=== PATIENT | male | born 1990 | race Caucasian/White ===

== ENCOUNTER 2017-07-29 01:58 | Emergency (ER) | payer OTHER ==
[2017-07-29] MEDS ORDERED: Ketorolac INJ* 60 MG/2 ML VIAL IM ONE (02:52)
[2017-07-29] MEDS ORDERED: Ketorolac INJ* 60 MG/2 ML VIAL ONE (02:55)
--- NOTE | 2017-07-29 06:39 | ED ---
Tej Waller Rebecca, scribed for Gonzalez De La Torre MD on 07/29/17 at 0212 . Lower Extremity - HPI Summary HPI Summary: Pt is a 27 y/o M BIBA who presents to ED c/o R ankle pain with EtOH involvement. When asked what happened, the pt shakes his head and states he was trying to go home and go to sleep. When asked how much he had to drink tonight he reported enough. EMS report that he did not remember the incident but that he was found in an area where it looked like he had fallen down a ledge. Associated pain is currently moderate, ranked 6/10. - History of Current Complaint Chief Complaint: EDExtremityLower Stated Complaint: RT LEG INJURY Hx Obtained From: Patient, EMS Onset of Pain: Prior to Arrival Onset/Duration: Still Present Severity Currently: Moderate - 6/10 Pain Intensity: 6 Pain Scale Used: 0-10 Numeric Location: Is Discrete @ - R ankle - Allergies/Home Medications Allergies/Adverse Reactions: Allergies Allergy/AdvReac Type Severity Reaction Status Date / Time Amoxicillin Allergy Hives Verified 07/29/17 09:00 amoxicillin Allergy Hives Uncoded 07/29/17 09:00 PMH/Surg Hx/FS Hx/Imm Hx Cardiovascular History: Denies: Hx Coronary Artery Disease Respiratory History: Reports: Hx Asthma Infectious Disease History: No Infectious Disease History: Denies: Traveled Outside the [place] in Last 30 Days - Family History Known Family History: Negative: Hypertension - Social History Substance Use Type: Reports: None Smoking Status (MU): Never Smoked Tobacco Review of Systems Positive: Arthralgia - R ankle pain s/p fall Positive: Other - EtOH All Other Systems Reviewed And Are Negative: Yes Physical Exam Triage Information Reviewed: Yes Vital Signs On Initial Exam: Initial Vitals Temp Pulse Resp BP Pulse Ox 98.8 F 135 14 141/90 98 07/29/17 02:05 07/29/17 02:05 07/29/17 02:05 07/29/17 02:05 07/29/17 02:05 Vital Signs Reviewed: Yes Appearance: Positive: Well-Appearing, Pain Distress - mild pain Skin: Positive: Warm Head/Face: Positive: Normal Head/Face Inspection Eyes: Positive: BELL ENT: Positive: Hearing grossly normal Respiratory/Lung Sounds: Positive: Breath Sounds Present Cardiovascular: Positive: RRR Abdomen Description: Positive: Nontender, Soft Musculoskeletal: Positive: Other - rt ankle swollen, obvious deformity, pain to palpation, pulses 2+ distally Procedures - Splinting Hand-Made Type: orthoglass Splint: sugar-tong Pre-Proc Neuro Vasc Exam: normal Post-Proc Neuro Vasc Exam: normal - Joint Reduction Joint Reduction Site: ankle (R) Conscious Sedation: No Reduction Attempts: 1 Pre-Procedure NV Exam: Yes Post Joint Reduction Film: joint reduced Diagnostics - Vital Signs Vital Signs Temp Pulse Resp BP Pulse Ox 07/29/17 02:05 98.8 F 135 14 141/90 98 - Laboratory Result Diagrams: 07/29/17 07:30 07/29/17 07:30 Lab Statement: Any lab studies that have been ordered have been reviewed, and results considered in the medical decision making process. - Radiology Ankle XR Xray Interpretation: Positive (See Comments) - Bimalleaolar ankle fracture with dislocation Radiology Interpretation Completed By: ED Physician Re-Evaluation - Re-Evaluation First Eval Re-Evaluation Time: 02:37 Change: Improved Comment: Discussed XR results with the pt. Lower Extremity Course/Dx - Course Assessment/Plan: Pt is a 27 y/o M BIBA who presents to ED c/o R ankle pain with EtOH involvement. When asked what happened, the pt shakes his head and states he was trying to go home and go to sleep. When asked how much he had to drink tonight he reported enough. EMS report that he did not remember the incident but that he was found in an area where it looked like he had fallen down a ledge. Associated pain is currently moderate, ranked 6/10. Ankle XR as read by ED physician reveals bimalleaolar ankle fracture with widened borders. In the ED course, pt was administered Toradol. Discussed care of pt with Dr. Koffi Mcfarlane who discussed the patient and he advised that the pt is splinted and follows up in the office as an outpatient. Pt will be D/C to home with Dx of ankle fracture and a follow up with Dr. Mcfarlane. He understands and agrees. Elevated BP noteed and advised to f/u with PCP. - Diagnoses Provider Diagnoses: Ankle fracture, Ankle dislocation - Physician Notifications Discussed Care Of Patient With: Koffi Mcfarlane Time Discussed With Above Provider: 02:32 Instructed by Provider To: Other - Discussed the patient and he advised that the pt is splinted and follows up in the office as an outpatient. Discharge - Discharge Plan Condition: Improved Disposition: HOME Prescriptions: Ibuprofen TAB* [Motrin TAB* 600 MG] 600 mg PO Q8H PRN #20 tab MDD 3 PRN Reason: Pain oxyCODONE/Acetamin 5/325 MG* [Percocet 5/325 TAB*] 1 tab PO Q8H PRN #15 tab MDD 3 PRN Reason: Pain Patient Education Materials: Ankle Fracture (ED), Ankle Dislocation (ED) Referrals: Koffi Mcfarlane MD [Medical Doctor] - 3 Days (PLEASE F/U IN 2-3 DAYS) [facility] [Primary Care Provider] - The documentation as recorded by the Tej best Rebecca accurately reflects the service I personally performed and the decisions made by me, Gonzalez De La Torre MD.
[2017-07-29] MEDS ORDERED: oxyCODONE/Acetamin 5/325 MG* TAB PO ONE (06:40)
[2017-07-29] MEDS ORDERED: NS 0.9% 1000 ML* 3,000 ML IV ONE (07:22)
[2017-07-29] MEDS ORDERED: Aspirin Low Dose CHEW TAB* 81 MG PO ONE (07:22)
[2017-07-29 08:04] LABS: Hematocrit 43 % (42-52); Hemoglobin 14.9 g/dl (14.0-18.0); Mean Corpuscular HGB Conc 35 g/dl (31-36); Mean Corpuscular Hemoglobin 32 pg (27-31); Mean Corpuscular Volume 94 fL (80-94); Mean Platelet Volume 8 um3 (7.4-10.4); Red Cell Distribution Width 13 % (10.5-15); White Blood Count 15.7 10^3/ul (3.5-10.8)
--- NOTE | 2017-07-29 08:06 | RAD ---
INDICATION: Right ankle injury. TECHNIQUE: 2 views of the right ankle were obtained. The positioning is limited due to the patient's clinical status. FINDINGS: There is anterior dislocation of the tibia relative to the talus. There is an oblique fracture extending through the fibular metaphysis to the articular margin. The distal fragment is displaced approximately one half shaft diameter lateral and demonstrates lateral angulation relative the proximal fragment. There is also a fracture of the posterior malleolus. The fracture fragment is displaced proximally. The medial malleolus is not well defined on this exam. IMPRESSION: 1. LIMITED EXAM. 2. FRACTURE DISLOCATION OF THE ANKLE DESCRIBED. CONSIDER CT IMAGING FOR FURTHER EVALUATION.
[2017-07-29 08:15] LABS: Albumin 4.4 g/dL (3.2-5.2); BUN/Creatinine Ratio 13.5 (8-20); EGFR Non-African American 86.3 (>60); Globulin 3.3 g/dL (2-4); Potassium 4.1 mmol/L (3.5-5.0); Total Bilirubin 0.4 mg/dL (0.2-1.0); Total Protein 7.7 g/dL (6.4-8.9)
--- NOTE | 2017-07-29 08:39 | RAD ---
INDICATION: Chronic fracture of the right ankle. COMPARISON: Comparison is made with the prior study of the same date from approximately 6 hours earlier. TECHNIQUE: 2 views of the right ankle were obtained. FINDINGS: The ankle is in a fiberglass splint. There is anterior dislocation of the tibia relative to the talus and diffuse widening of the ankle mortise which is unchanged. There is an oblique intra-articular fracture of the distal fibula. The distal fragment is displaced lateral and demonstrates lateral angulation which is unchanged. There is also a fracture of the posterior malleolus. IMPRESSION: FRACTURE DISLOCATION OF THE ANKLE, UNCHANGED.
[2017-07-29] MEDS ORDERED: fentaNYL* 50 MCG/ML 2 ML VIAL (100 MCG VIAL) ONE (08:48)
[2017-07-29] MEDS ORDERED: Flumazenil* 0.1 MG/ML 5 ML MDV ONE (08:48)
[2017-07-29] MEDS ORDERED: Naloxone* 0.4 MG/ML 10 ML VIAL ONE (08:48)
[2017-07-29] MEDS ORDERED: Midazolam* 1 MG/ML 10 ML VIAL (10 MG) ONE (08:48)
--- NOTE | 2017-07-29 10:08 | RAD ---
INDICATION: Traumatic fracture dislocation of the right ankle. COMPARISON: Comparison is made with a prior study from approximately one hour earlier. TECHNIQUE: 3 views of the right ankle were obtained. FINDINGS: The ankle is in a fiberglass splint. There has been interval reduction of previously noted anterior dislocation of the tibia relative to the talus. There is diffuse widening of the ankle mortise. Again note is made of an oblique intra-articular fracture of the distal fibula. The distal fragment is displaced posterior one cortical diameter and there has been interval resolution of the previously noted lateral angulation of the distal fragment. There is also a fracture of the posterior malleolus which is slightly displaced. On the lateral image there is a small linear density which projects over the joint space possibly representing a loose fragment. IMPRESSION: 1. INTERVAL REDUCTION OF THE PREVIOUSLY NOTED TIBIOTALAR DISLOCATION. 2. DIFFUSE WIDENING OF THE ANKLE MORTISE. 3. FRACTURES OF THE DISTAL FIBULA AND POSTERIOR MALLEOLUS NOTED. 4. POSSIBLE SMALL LOOSE JOINT FRAGMENT.
[2017-07-29] MEDS ORDERED: Ibuprofen TAB* 600 MG PO ONE (11:15)
[2017-07-29 11:58] VITALS: BP 121/68
== END 2017-07-29 11:57 | disposition home or self-care (01) ==
LOC: ED 01:58
DX: S82.891A Other fracture of right lower leg, initial encounter for closed fracture (principal); M25.571 Pain in right ankle and joints of right foot; F10.129 Alcohol abuse with intoxication, unspecified; X58.XXXA Exposure to other specified factors, initial encounter; Y93.9 Activity, unspecified; Y92.9 Unspecified place or not applicable
CPT/HCPCS: 36415; 80053; 80320; 84484; 85025; 93005; 96372; 99283; A9270-GY; G0480; J1885; J2250; J2310; J3010